=== PATIENT | male | born 1950 | race Caucasian/White ===

== ENCOUNTER 2017-01-26 06:40 | Day surgery (SDC) | payer MEDICARE, OTHER ==
[2017-01-11 14:23] LABS: WBC (NOT ORDERED) (RFLEX) 0 (0-5)
[2017-01-11 14:41] LABS: BASOPHILS 0.8 %; BASOPHILS ABSOLUTE 0.09 10/3/uL (0.0-0.16); EOSINOPHILS 6.4 %; EOSINOPHILS ABSOLUTE 0.71 10/3/uL (0.0-0.53); HEMOGLOBIN 13.3 g/dL (13.6-17.8); IMMATURE GRANULOCYTES 0.3 %; IMMATURE GRANULOCYTES ABSOLUTE 0.03 10/3/uL (0.0-0.11); LYMPHOCYTES 32.9 %; LYMPHOCYTES ABSOLUTE 3.64 10/3/uL (0.67-4.30); MEAN CORPUS HGB CONC 34.9 g/dL (32.0-36.0); MEAN CORPUSCULAR VOLUME 91.8 fL (80-100); MEAN PLATELET VOLUME 10.2 fL (9.2-13.0); MONOCYTES 8.5 %; MONOCYTES ABSOLUTE 0.94 10/3/uL (0.21-1.20); NEUTROPHILS 51.1 %; NEUTROPHILS ABSOLUTE 5.65 10/3/uL (2.02-8.40); PLATELET COUNT 285 10/3/uL (150-400); RBC DISTRIBUTION WIDTH 13.5 % (12.0-16.0); RED CELL COUNT 4.15 10/6/uL (4.7-6.1); WHITE BLOOD CELLS 11.1 10/3/uL (4.5-10.5)
[2017-01-11 14:42] LABS: HEMATOCRIT 38.1 % (40.0-51.0); MANUAL DIFF NO %
[2017-01-11 14:55] LABS: BUN (BLOOD UREA NITROGEN) 8 MG/DL (6-23); CALCIUM, SERUM 9.3 MG/DL (8.5-10.4); CHLORIDE, SERUM 102 MMOL/L (96-112); CO2 (CARBON DIOXIDE) 28 MMOL/L (24-34); CREATININE 0.64 MG/DL (0.70-1.30); GFR AFRICAN AMERICAN 117 ML/MIN (>=60); GFR NON AFRICAN AMERICAN 101 ML/MIN (>=60); GLUCOSE, SERUM 89 MG/DL (60-99); POTASSIUM, SERUM 4.4 MMOL/L (3.5-5.3); SODIUM, SERUM 139 MMOL/L (135-148)
[2017-01-11 19:32] LABS: ASCORBIC ACID (UR NOT ORDER) NEG (NEG); BILIRUBIN, URINE NEGATIVE (NEG); KETONE, URINE NEGATIVE (NEG); LEUKOCYTE ESTERASE(NOT OR NEG (NEG)
--- NOTE | ~2017-01-26 | OP ---
Record Of Operation [facility] [address] [facility] [place]. [address] NAME: BEBA HAYS : 48 STATUS : [facility]#: [id number] AGE: 66 ADM/REG DATE : 01/26/17 MR#: [id number] REPORT SERV DATE: 01/26/17 DICTATED BY: LASHON BOATENG DATE: 01/26/17 REPORT STATUS : Draft TRANSCRIBED BY: MODL DATE: 01/26/17 DATE OF PROCEDURE: 01/26/2017 REFERRING PHYSICIAN: Anand Bradley M.D. PREOPERATIVE DIAGNOSIS: Chronic and longstanding right scrotal inguinal hernia. To be treated also for prostate carcinoma with radiation therapy. POSTOPERATIVE DIAGNOSIS: Chronic and longstanding right scrotal inguinal hernia. To be treated also for prostate carcinoma with radiation therapy with request of repair of hernia prior to the initiation of the prostate radiation. PROCEDURE: Open sutured Bassini right inguinal hernia repair with a concomitant right orchiectomy. SURGEON: Lashon Boateng M.D. ANESTHESIA: Spinal with local supplement. ESTIMATED BLOOD LOSS: Nil. FLUIDS: Crystalloid. SPECIMEN: Rather impressively large right inguinal hernia sac with the densely adherent cord and right testicle. DRAINS: None. COMPLICATIONS: None. CONDITION: Fair. INDICATIONS: Mr. Hays is a 66-year-old who has gotten a significant history of coronary atherosclerotic heart disease as well as with what appears to be a rather high-grade prostate carcinoma that is to be treated with radiation therapy. He was evaluated by Radiation Oncology, as well as Urology and noted to have a long-standing scrotal hernia on the right. Radiation Oncology would like to have this hernia repaired prior to the initiation of treatment. Oncology, kindly referred to Cardiology for risk stratification and treatment prior to surgery. The patient has been evaluated and felt to be at high risk for surgical intervention due to significant underlying coronary artery disease with a low cardiac ejection fraction. However, the patient is not felt to have any correctable problem to reduce risk. This being the case, we are now proceeding with hernia repair to allow him to proceed with treatment of his prostate cancer. In review of the case, the Anesthesia has suggested spinal anesthetic which the patient and myself were quite comfortable with. PROCEDURE IN DETAIL: After being identified and marked in preop holding, the patient was Record Of Operation [place] [id number] [facility] [place]. [address] NAME: BEBA HAYS : 48 STATUS : [facility] PAT#: [id number] AGE: 66 ADM/REG DATE : 01/26/17 MR#: [id number] REPORT SERV DATE: 01/26/17 DICTATED BY: LASHON BOATENG DATE: 01/26/17 REPORT STATUS : Draft TRANSCRIBED BY: SCOT DATE: 01/26/17 brought to operating room. Spinal anesthetic was performed with an excellent block. Again, additional time-out was performed in the supine position, the abdomen, genitalia, and inguinal region prepped and draped sterilely. To my surprise, the hernia reduced during the course of the prep. We went ahead and infiltrated with mixture of 0.5% Marcaine with epinephrine and 1% lidocaine in the skin and subcu and made a rather long incision from pubic tubercle towards the anterior superior iliac spine. The subcutaneous layer was opened with electrocautery. The external oblique with cord egressing was evident. We infiltrated local deep to the external oblique and then a longitudinal incision with scalpel followed by Metzenbaum scissors through the external ring. The leaflets of the external ring were grasped with hemostats. The inguinal content was bluntly peeled out and a pair of Weitlaner retractors were used to hold the external oblique open. Cord was exceptionally large. There appeared to be an exceptionally large indirect inguinal hernia and it encompassed the bulk of the floor of the canal. I dissected and looped the generous cord at the pubic tubercle with quarter-inch Calion. The ilioinguinal nerve was readily evident on the cord, the iliohypogastric nerve was not within the field evident. At this point, I carefully dissected into the cord and encountered a very thickened reactive hernia sac. I could readily identify the vas and spermatic vessels and course it with the sac medially and it was technically very very difficult to try to separate the cord vessels and vas from this long-standing hernia sac. In light of the patient's significant prostate cancer and the massive nature of the hernia, I really felt that it would be best to simply remove the hernia sac with the testicle on the right hand side. This being the case, we brought the cord, testicle, and the sac out of the scrotum and into the operative field rather readily. I was able to readily separate the ilioinguinal nerve from the other structures. I opened the hernia sac and inspected to be sure that there was no sliding component. There was small bowel evident within the peritoneal cavity, but there was no sliding component. At this point, we simply twisted the sac and the spermatic cord and rather aggressively suture ligated it at the level of the internal ring with 3-0 Vicryl. I amputated the sac and spermatic cord, sending the sac with the adherent cord and testicle for histopathology. I was very hesitant to place the mesh in this huge hernia site in light of the upcoming radiation therapy, and we elected to proceed with a simple Bassini repair. Zero Ethibond sutures were placed to the conjoined tendon medially and it was sutured to the iliopubic tract laterally. We started the adjacent to pubic tubercle and ran peripherally until we had an essentially a complete closure of the floor of the canal, care being taken to avoid the ilioinguinal nerve. At this point, the Calion was removed from the nerve. We broadly infiltrated the floor with the Marcaine lidocaine solution. Self-retaining retractor was now placed in the subcu layer and the external oblique was closed with a running 3-0 Vicryl. Shila was closed with running 3-0 Vicryl. Superficial subcu was closed with a lining suture of interrupted 3-0 Vicryl and the dermis was closed with 4-0 Monocryl followed by Benzoin, Steri-Strips, and sterile dressing. Mr. Hays tolerated the surgery quite well. He was recovered from his anesthetic, extubated, and transported to the recovery room in good stable condition. WANDY/SCOT Record Of [address] [place] [place] [address] NAME: BEBA HAYS : 48 STATUS : [facility]#: [id number] AGE: 66 ADM/REG DATE : 01/26/17 MR#: [id number] REPORT SERV DATE: 01/26/17 DICTATED BY: LASHON BOATENG DATE: 01/26/17 REPORT STATUS : Draft TRANSCRIBED BY: SCOT DATE: 01/26/17 Lashon Boateng M.D. / [id number] CC: Chidi Bland MD Eric Ellis, M.D. Patrick Foley, M.D.
[~2017-01-26 06:40] MED LIST: ASAB PO; BREO ELLIPTA 21 EACH INH; COREG6 PO; IMDUR60 PO; LIPITOR40 PO; PRIN20 PO; SPIRIVA INH
== END 2017-01-26 16:57 | disposition home or self-care (01) ==
LOC: SDC 06:40
PROVIDERS: Surgery
PROC: 0YQ50ZZ Repair Right Inguinal Region, Open Approach (ICD-10-PCS; principal; 2017-01-26 08:45)
DX: K40.90 Unilateral inguinal hernia, without obstruction or gangrene, not specified as recurrent (principal); I10 Essential (primary) hypertension; Z95.1 Presence of aortocoronary bypass graft
CPT/HCPCS: 71020; 80048; 81001; 85025; 88302; 88305; 93005; A9270-GY; J0690